=== PATIENT | male | born 1990 | race Caucasian/White ===

== ENCOUNTER 2017-03-09 01:49 | Emergency (ER) | payer OTHER ==
[2017-03-09 01:56] VITALS: BP 125/74; PULSE 73; RESP 16; TEMP 98.8; O2SAT 97
--- NOTE | 2017-03-09 02:07 | EDPHY ---
H & P Stated Complaint: R calf lac Time Seen by Provider: 03/09/17 02:05 HPI/ROS: HPI The patient presents with right calf laceration which occurred about 1 hour prior to arrival in the ER. 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 A piece of glass his leg. He began bleeding immediately. He does not have any numbness or tingling of his foot. He is able to walk without difficulty. He denies any foreign body sensation.. REVIEW OF SYSTEMS Constitutional: No fever, no chills. Skin: No rashes. Neurological: No headache. PMHx: Healthy Soc Hx: Works at a restaurant PHYSICAL General Appearance: Alert, no distress Eyes: Pupils equal and round no pallor or injection ENT, Mouth: Mucous membranes moist Respiratory: Breathing comfortably Neurological: A&O, moves all extremities Skin: Warm and dry, no rashes Musculoskeletal: Neck is supple non tender Extremities: Right lateral leg with 6 cm gaping laceration which is linear without any deep structure involvement. Psychiatric: Patient is oriented X 3, there is no agitation Source: Patient Exam Limitations: No limitations - Personal History Current Tetanus/Diphtheria Vaccine: Yes Current Tetanus Diphtheria and Acellular Pertussis (TDAP): Yes Tetanus Vaccine Date: 2015 - Medical/Surgical History Hx Asthma: Yes Hx Chronic Respiratory Disease: No Hx Diabetes: No Hx Cardiac Disease: No Hx Renal Disease: No Hx Cirrhosis: No Hx Alcoholism: No Hx HIV/AIDS: No Hx Splenectomy or Spleen Trauma: No Other PMH: vitiligo, asthma - Social History Smoking Status: Current every day smoker Constitutional: Initial Vital Signs Temperature (C) 37.1 C 03/09/17 01:53 Heart Rate 73 03/09/17 01:53 Respiratory Rate 16 03/09/17 01:53 Blood Pressure 125/74 H 03/09/17 01:53 O2 Sat (%) 97 03/09/17 01:53 O2 Delivery Mode Room Air Allergies/Adverse Reactions: No Known Allergies Allergy (Unverified 03/09/17 01:52) Home Medications: Medication Instructions Recorded NO HOME MEDS 12/27/10 Medical Decision Making Procedures: LACERATION REPAIR Procedure: Laceration repair. Verbal consent was obtained from the patient. The linear 6 cm laceration on the right lower leg was anesthetized using lidocaine with epinephrine. The wound was scrubbed, draped and explored to its base with a gloved finger. There were no deep structures involved. No tendon injury was identified. . The wound was repaired with 2 deep sutures of 4. 0 Vicryl, then a combination of horizontal mattress and simple interrupted sutures of 4. 0 Vicryl. The wound repair was complex. The procedure was performed by myself. Differential Diagnosis: This is a healthy 26-year-old male who presents after a laceration of his leg which occurred just prior to arrival at work. Differential diagnosis includes laceration, tendon injury, nerve injury. In the emergency room, his wound was anesthetized, irrigated, repaired. There is no deep structure involvement. I have given him warning signs for infection and have encouraged elevation of the leg. Departure - Departure Disposition: Home, Routine, Self-Care Clinical Impression: Laceration of leg not thigh Qualifiers: Encounter type: initial encounter Laterality: right Qualified Code(s): S81.811A - Laceration without foreign body, right lower leg, initial encounter Condition: Good Instructions: Care For Your Stitches (ED), Laceration (ED) Additional Instructions: Your stitches should be removed in 7 days. You can come to the emergency room for this or follow up with your regular doctor. Referrals: NONE *PRIMARY CARE P,. [Unknown] - As per Instructions
== END 2017-03-24 12:42 | disposition home or self-care (01) ==
PROC: 0HQKXZZ Repair Right Lower Leg Skin, External Approach (ICD-10-PCS; principal; 2017-03-09)
DX: S81.811A Laceration without foreign body, right lower leg, initial encounter (principal); J45.909 Unspecified asthma, uncomplicated; F17.200 Nicotine dependence, unspecified, uncomplicated; W25.XXXA Contact with sharp glass, initial encounter; Y92.511 Restaurant or cafe as the place of occurrence of the external cause; Y99.0 Civilian activity done for income or pay; Y93.89 Activity, other specified